=== PATIENT | female | born 1950 | race Caucasian/White ===

== ENCOUNTER → 2020-11-05 | Outpatient (CLI) | payer MEDICARE, BC ==
--- NOTE | 2020-11-05 16:24 | NM ---
EXAMINATION TYPE: NM parathyroid w/spect DATE OF EXAM: 11/05/2020 COMPARISON: NONE HISTORY: Hyperparathyroidism. Hypercalcemia. TECHNIQUE: Following administration of 25.5 mCi Tc99m Sestamibi. Anterior projection images of the neck and ches t were obtained 0 minutes and 3 hours post injection. SPECT images of the neck and chest were obtain ed and reconstructed in three axes. FINDINGS: Thyroid tracer washout: Delayed images demonstrate near-complete tracer washout from the thyroid. Parathyroid uptake: Persistent suspicious radiotracer uptake lower pole of the right thyroid on delay ed images. Normal uptake: There is physiological tracer uptake in the salivary glands and thyroid glands initial ly. 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 Consider ultrasound correlation.
--- NOTE | 2020-11-10 10:11 | MM ---
Reason for exam: additional evaluation requested from prior study. Last mammogram was performed 2 years and 2 months ago. History: Patient is postmenopausal and has history of breast cancer at age 62. Lumpectomy of the left breast, 2013. Radiation therapy of the left breast, 2013. Malignant excisional biopsy of the left breast, 2012. Took estrogen for 8 years. Took antineoplastic for 5 years. Physical Findings: Nurse did not find any significant physical abnormalities on exam. MG 3D Diag Mammo W/Cad ANISA Bilateral CC and MLO view(s) were taken. Prior study comparison: August 24, 2018, mammogram, performed at [facility]. August 04, 2017, mammogram, performed at [facility]. July 29, 2016, mammogram, performed at [facility]. December 29, 2015, mammogram, performed at [facility]. July 14, 2015, mammogram, performed at [facility]. May 02, 2014, mammogram, performed at [facility]. October 11, 2013, mammogram, performed at [facility]. The breast tissue is heterogeneously dense. This may lower the sensitivity of mammography. Stable benign calcifications. Stable post operative lumpectomy changes left breast. No significant new findings when compared with previous films. These results were verbally communicated with the patient on 11/10/20. ASSESSMENT: Benign, BI-RAD 2 RECOMMENDATION: Follow-up diagnostic mammogram of both breasts in 1 year.
== END | disposition home or self-care (01) ==
LOC: RADNMMAIN 11:16
PROVIDERS: ATTEND Family Medicine
DX: E21.3 Hyperparathyroidism, unspecified (principal); R92.2 Inconclusive mammogram; R92.1 Mammographic calcification found on diagnostic imaging of breast
CPT/HCPCS: 77066; 78071; G0279; A9500; 77062

== ENCOUNTER → 2021-01-28 | Outpatient (CLI) | payer MEDICARE, BC ==
--- NOTE | 2021-01-28 15:31 | US ---
EXAMINATION TYPE: US thyroid st tissue head/neck DATE OF EXAM: 01/28/2021 COMPARISON: [place] 11/05/2020 CLINICAL HISTORY: 70-year-old female E83.52 Hypercalcemia. TECHNIQUE: Multiple sonographic images of the thyroid gland are obtained. FINDINGS: GLAND SIZE: Right Lobe: 3.9 x 1.2 x 1.7 cm Overall Parenchyma: heterogenous Left Lobe: 4.6 x 1.1 x 1.2 cm Overall Parenchyma: heterogeneous Isthmus Thickness: 0.4 cm NODULES RIGHT: # of nodules measured on right: 1 1. 0.7 X 0.4 x 0.6 cm, mid mid, solid or almost completely solid, hypoechoic TR 4 nodule, which is wider than tall, with smooth margins, without echogenic foci. Prior size: no prior Multiple other subcentimeter nodules, largest measured. 2 adjacent very hypoechoic nodules are pres ent far posteriorly at the mid to lower pole measuring 7 mm and 5 mm. LEFT: # of nodules measured on left: 2 1. 1.0 X 0.6 x 0.7 cm, upper mid, solid or almost completely solid, hypoechoic TR 5 nodule, which i s wider than tall, with smooth margins, with echogenic foci. Prior size: no prior 2. 0.7 X 0.7 x 0.7 cm, lower mid, solid or almost completely solid, hypoechoic TR 5 nodule, which is taller than wide, with smooth margins, with echogenic foci. Prior size: no prior ISTHMUS: # of nodules measured in the isthmus: 0 Bilateral neck scanned, no evidence of lymphadenopathy. Recruiter Coordinator notes: Incidental note is made of paired parathyroid adenoma's right side measuring 0.7 x 0.4 x 0.4 cm and 0.5 x 0.2 x 0.4 cm. IMPRESSION: 1. Possible paired, adjacent parathyroid adenomas posteriorly at the level of the mid to lower right thyroid lobe. This seems to correspond to the area of increased activity on the parathyroid scan. 2. A couple TR5 nodules in the left lobe measuring 10 mm and 7 mm. FNA can be considered for the left -sided 10 mm nodule. The other nodules should be followed.
== END | disposition home or self-care (01) ==
LOC: RADUSWWP 12:04
PROVIDERS: ATTEND Otolaryngology
DX: E04.2 Nontoxic multinodular goiter (principal)
CPT/HCPCS: 76536

== ENCOUNTER → 2022-01-26 | Outpatient (CLI) | payer MEDICARE, BC ==
--- NOTE | 2022-01-26 11:15 | MM ---
Reason for Exam: Follow-up at short interval from prior study. Last mammogram was performed 1 year(s) and 3 month(s) ago. Patient History: Menarche at age 14. First Full-Term at age 19. Hysterectomy at age 44. Postmenopausal. Breast cancer, age 62. Previous chest radiation therapy at age 62. Patient used Estrogen for 8 years. 2012, Malignant Excisional Biopsy on the left side. 2013, Lumpectomy on the Left side. 2013, Radiation Therapy on the left side. Prior Study Comparison: 06/09/2004 Bilateral Screening Mammogram, [facility]. 10/11/2013 Screening Mammogram, [facility]. 05/02/2014 Screening Mammogram, [facility]. 07/14/2015 Screening Mammogram, [facility]. 12/29/2015 Screening Mammogram, [facility]. 07/29/2016 Screening Mammogram, [facility]. 08/04/2017 Screening Mammogram, [facility]. 08/24/2018 Screening Mammogram, [facility]. 11/05/2020 Bilateral Diagnostic Mammogram, [facility]. Tissue Density: There are scattered fibroglandular densities. Findings: Analyzed By CAD. Pattern appears stable. Postsurgical changes are within the left breast. Postsurgical area contains some punctate calcifications. No suspicious groups of microcalcifications, spiculated or lobular masses, architectural distortion or other secondary signs of malignancy are mammographically apparent. Overall Assessment: Benign, BI-RAD 2 Management: Screening Mammogram of both breasts in 1 year. A negative mammogram report should not preclude additional follow up of suspicious palpable abnormalities. Patient should continue monthly self breast exam. A clinical breast exam by your physician is recommended on an annual basis and results should be correlated with mammographic findings. Electronically signed and approved by: Oren Grace D.O. Radiologis
--- NOTE | 2022-01-26 12:49 | CTL ---
EXAMINATION TYPE: CT Low Dose Lung DATE OF EXAM ORDERED: 01/26/2022 HISTORY: . Lung cancer screening CT DLP: 81.[address] CTDI: 2.20 mGy Automated exposure control for dose reduction was used. SCREENING VISIT: COMPARISON: None TECHNIQUE: Low dose computed tomography scan was performed through the chest at 1 mm thick sections a nd reconstructed images in multiple planes at 1 mm and [address] DIAGNOSTIC QUALITY: Satisfactory FINDINGS: Lungs are clear. There is no pleural effusion or pneumothorax. No focal pneumonia. No pleural or pare nchymal calcifications. Mild emphysematous changes noted. There is a 2 mm subpleural nodule right upper lobe axial image 84. Heart size normal. Aorta of normal caliber. No significant coronary artery calcification. There is a nodule seen within the left breast with calcification measuring 1.2 cm. Hypertrophic and degenerative changes of the vertebral count. There is a right upper pole renal lesio n measuring 1.2 cm and 9 Hounsfield units. Findings compatible with a Bosniak classification 1 simple cyst. IMPRESSION: 1. 2 mm nodule subpleural right upper lobe has a benign appearance. No suspicious appearing nodules. 2. There is a 1.2 cm nodule left breast with calcification recommend mammogram. CT LUNG RAD AND CT CHEST RECOMMENDATION: Lung-Rad 2 Benign Appearance or Behavior: Continue annual sc reening with LDCT in 12 months. S Modifier (other clinically significant findings): S
== END | disposition home or self-care (01) ==
LOC: RADMAMWWP 10:49
PROVIDERS: ATTEND Family Medicine
DX: Z12.2 Encounter for screening for malignant neoplasm of respiratory organs (principal); R91.8 Other nonspecific abnormal finding of lung field; Z19.1 Hormone sensitive malignancy status; Z78.0 Asymptomatic menopausal state
CPT/HCPCS: 77066; 71271; G0279; 77062

== ENCOUNTER → 2022-02-18 | Outpatient (CLI) | payer MEDICARE, BC ==
--- NOTE | 2022-02-18 12:31 | US ---
EXAMINATION TYPE: US thyroid st tissue head/neck DATE OF EXAM: 02/18/2022 COMPARISON: 01/28/2021 CLINICAL HISTORY: 71-year-old female E04.1 NONTOXIC SINGLE THYROID NODULE. F/u exam Technique: Multiple sonographic images of the thyroid gland are obtained. FINDINGS: GLAND SIZE: Right Lobe: 3.4 x 1.3 x 1.6 cm Overall Parenchyma: heterogenous Left Lobe: 4.2 x 1.2 x 1.5 cm Overall Parenchyma: heterogeneous Isthmus Thickness: 0.3 cm NODULES RIGHT: # of nodules measured on right: 2 - multiple nodules, measured largest 1. 0.7 X 0.7 x 0.5 cm, mid , solid or almost completely solid, hypoechoic TR4 nodule, which is wide r than tall, with smooth margins, without echogenic foci. Prior size: 0.7 x 0.6 x 0.4 cm 2. 0.8 X 0.9 x 0.8 cm, Inferior to thyroid gland cystic or almost completely cystic, anechoic nodu le, which is wider than tall, with smooth margins, with echogenic foci. Suspected colloid cyst. Prior size: 1.2 x 0.7 x 0.4 cm - previously measured as 2 separate, I combined measurements toda y LEFT: # of nodules measured on left: 1 - measured largest 1. 1.1 X 0.8 x 0.6 cm, upper , solid or almost completely solid, hypoechoic TR4 nodule, which is wi marichuy than tall, with smooth margins, without echogenic foci. Prior size: 1.0 x 0.7 x 0.5 cm ISTHMUS: # of nodules measured in the isthmus: 0 Bilateral neck scanned, no evidence of lymphadenopathy. IMPRESSION: Consider multinodular goiter. Dominant nodules are measured. The 7 mm TR4 nodule at the right midpole is unchanged. At the left upper pole, the 1.1 cm here for nodule is also relatively unchanged. Ongoi ng follow-up as clinically indicated.
== END | disposition home or self-care (01) ==
LOC: RADUSWWP 09:20
PROVIDERS: ATTEND Internal Medicine Endocrinology, Diabetes & Metabolism
DX: E04.2 Nontoxic multinodular goiter (principal)
CPT/HCPCS: 76536

== ENCOUNTER → 2022-02-18 | Outpatient (CLI) | payer MEDICARE, BC ==
--- NOTE | 2022-02-18 10:40 | MM ---
Reason for Exam: Additional evaluation requested from abnormal screening. Last screening mammogram was performed less than 1 month ago. Patient History: Menarche at age 14. First Full-Term at age 19. Hysterectomy at age 44. Postmenopausal. Patient has history of breast feeding. Breast cancer, left, age 62. Previous chest radiation therapy at age 62. Patient used Estrogen for 8 years. 2012, Malignant Excisional Biopsy on the left side. 2013, Lumpectomy on the Left side. 2013, Radiation Therapy on the left side. Prior Study Comparison: 06/09/2004 Bilateral Screening Mammogram, [facility]. 10/11/2013 Screening Mammogram, [facility]. 05/02/2014 Screening Mammogram, [facility]. 07/14/2015 Screening Mammogram, [facility]. 12/29/2015 Screening Mammogram, [facility]. 07/29/2016 Screening Mammogram, [facility]. 08/04/2017 Screening Mammogram, [facility]. 08/24/2018 Screening Mammogram, [facility]. 11/05/2020 Bilateral Diagnostic Mammogram, [facility]. 01/26/2022 Bilateral MG 3D diag mammo w/cad ANISA, [facility]. Tissue Density: Left: There are scattered fibroglandular densities. Findings: Analyzed By CAD. Redemonstrated 12:00 posterior depth postsurgical scar. There are increasing microcalcifications at this site. On the lateral view, these appear coarse and heterogeneous but on the mag CC view, we suspect early developing fat necrosis calcifications. Six-month follow-up mammogram recommended to reassess. Patient being reevaluated due to incidental abnormality seen on a CT. Overall Assessment: Probably benign, BI-RAD 3 Management: Diagnostic Mammogram of the left breast in 6 months. 1. Patient should continue monthly self breast exams. 2. A clinical breast exam by your physician is recommended on an annual basis. 3. This exam should not preclude additional follow-up of suspicious palpable abnormalities. Results were given to the patient verbally at the time of exam. Electronically signed and approved by: Kelley Lopez M.D. Radiologist
== END | disposition home or self-care (01) ==
LOC: RADUSWWP 09:23
PROVIDERS: ATTEND Internal Medicine
DX: Z53.9 Procedure and treatment not carried out, unspecified reason (principal)

== ENCOUNTER → 2022-08-24 | Outpatient (CLI) | payer MEDICARE, BC ==
--- NOTE | 2022-08-24 10:04 | MM ---
Reason for Exam: Follow-up at short interval from prior study. Last screening mammogram was performed 7 month(s) ago. Patient History: Menarche at age 14. First Full-Term at age 19. Left ovary removed at age 44. Right ovary removed at age 44. Hysterectomy at age 44. Postmenopausal. Patient has history of breast feeding. Breast cancer, left, age 62. Previous chest radiation therapy at age 62. Patient used Estrogen for 8 years. 2012, Malignant Excisional Biopsy on the left side. 2013, Lumpectomy on the Left side. 2013, Radiation Therapy on the left side. Prior Study Comparison: 10/11/2013 Screening Mammogram, [facility]. 05/02/2014 Screening Mammogram, [facility]. 07/14/2015 Screening Mammogram, [facility]. 12/29/2015 Screening Mammogram, [facility]. 07/29/2016 Screening Mammogram, [facility] 08/04/2017 Screening Mammogram, [facility]. 08/24/2018 Screening Mammogram, [facility]. 11/05/2020 Bilateral Diagnostic Mammogram, [facility]. 01/26/2022 Bilateral MG 3D diag mammo w/cad ANISA, [facility]. 02/18/2022 Left MG 3D follow up no charge , [facility]. Tissue Density: There are scattered fibroglandular densities. Findings: Analyzed By CAD. Postsurgical and posttreatment change left breast. Lumpectomy scar at 12:00 left breast with associated fat necrosis calcifications now. Benign oil cyst calcification centrally on the right. Significant change from prior exams. Overall Assessment: Benign, BI-RAD 2 Management: Screening Mammogram of both breasts in 1 year. Results were given to the patient verbally at the time of exam. Patient should continue monthly self-breast exams. A clinical breast exam by your physician is recommended on an annual basis. This exam should not preclude additional follow-up of suspicious palpable abnormalities. Electronically signed and approved by: Kelley Lopez M.D. Radiologist
== END | disposition home or self-care (01) ==
LOC: RADMAMWWP 09:28
PROVIDERS: ATTEND Internal Medicine
DX: N63.21 Unspecified lump in the left breast, upper outer quadrant (principal)
CPT/HCPCS: 77066; G0279; 77062

== ENCOUNTER → 2023-10-20 | Outpatient (CLI) | payer MEDICARE, BC ==
--- NOTE | 2023-10-20 09:44 | MM ---
Reason for Exam: Hx of breast cancer, conservation therapy. Last mammogram was performed 1 year(s) and 2 month(s) ago. Patient History: Menarche at age 14. First Full-Term at age 19. Left ovary removed at age 44. Right ovary removed at age 44. Hysterectomy at age 44. Postmenopausal. Patient has history of breast feeding. Breast cancer, left, age 62. Previous chest radiation therapy at age 62. Patient used Estrogen for 8 years. 2012, Malignant Excisional Biopsy on the left side. 2013, Lumpectomy on the Left side. 2013, Radiation Therapy on the left side. Prior Study Comparison: 07/29/2016 Screening Mammogram, [facility]. 08/24/2018 Screening Mammogram, [facility]. 01/26/2022 Bilateral MG 3D diag mammo w/cad ANISA, [facility]. 02/18/2022 Left MG 3D follow up no charge , [facility]. 08/24/2022 Bilateral MG 3D diag mammo w/cad ANISA, [facility]. Tissue Density: There are scattered areas of fibroglandular density. Findings: Analyzed By CAD. Postoperative changes of lumpectomy left breast. No significant interval change. No evidence for recurrent mass. No new masses seen. No suspicious microcalcifications within either breast. Overall Assessment: Benign, BI-RAD 2 Management: Screening Mammogram of both breasts in 1 year. . Results were given to the patient verbally at the time of exam. Patient should continue monthly self-breast exams. A clinical breast exam by your physician is recommended on an annual basis. This exam should not preclude additional follow-up of suspicious palpable abnormalities. Note on Anamaria scores and lifetime risk: 1. A Anamaria score greater than 3% is considered moderate risk. If this is the case, consider specialist referral to assess eligibility for a risk reducing agent. 2. If overall lifetime risk for the development of breast cancer is 20% or higher, the patient may qualify for future screening with alternating mammogram and breast MRI. Electronically signed and approved by: Jonathan Moreno M.D. Radiologis
== END | disposition home or self-care (01) ==
LOC: RADMAMWWP 09:21
PROVIDERS: ATTEND Family Medicine
DX: C50.012 Malignant neoplasm of nipple and areola, left female breast (principal); R92.323 Mammographic fibroglandular density, bilateral breasts; Z78.0 Asymptomatic menopausal state
CPT/HCPCS: 77066; G0279; 77062

== ENCOUNTER → 2024-02-06 | Outpatient (CLI) | payer MEDICARE, BC ==
[2024-02-06] MEDS: DENOSUMAB 60 MG/ML 1 ML SYRINGE SQ NR (13:10)
[2024-02-06 13:12] VITALS: BP 133/89; PULSE 87; RESP 16; TEMP 98.3
== END ==
LOC: PROCWHC3 12:57
PROVIDERS: ATTEND Family Medicine
DX: M81.0 Age-related osteoporosis without current pathological fracture (principal)
CPT/HCPCS: 96372; J0897

== ENCOUNTER → 2024-08-08 | Outpatient (CLI) | payer MEDICARE, BC ==
[2024-08-08] MEDS: DENOSUMAB 60 MG/ML 1 ML SYRINGE SQ NR (11:25)
[2024-08-08 11:27] VITALS: BP 158/90; PULSE 62; RESP 16; TEMP 98.1
== END ==
LOC: PROCWHC3 11:14
PROVIDERS: ATTEND Family Medicine
DX: M81.0 Age-related osteoporosis without current pathological fracture (principal)
CPT/HCPCS: 96372; J0897